=== PATIENT | male | born 1975 | race African-American/Black ===

== ENCOUNTER 2022-05-02 12:35 | Emergency (ER) | payer SELFPAY ==
[~2022-05-02 12:35] MED LIST: BENTYL10 MG PO; CYCLOBENZAPRINE10 MG PO; IBUPROFEN800 MG PO; IMODIUM2 MG PO; MEDROL 4MG DOSEP4 MG PO; NORCO 5-325 TA1 EACH PO
[2022-05-02] MEDS ORDERED: KEFLEX250 MG PO (13:56)
[2022-05-02] MEDS ORDERED: BACTRIM DS TAB1 EACH PO (13:56)
== END 2022-05-02 14:17 | disposition home or self-care (01) ==
LOC: FER 12:35
DX: L02.413 Cutaneous abscess of right upper limb (principal); Z88.5 Allergy status to narcotic agent; Z88.8 Allergy status to other drugs, medicaments and biological substances
CPT/HCPCS: 87070; 87077; 87186; 87205